=== PATIENT | male | born 1965 | race Caucasian/White ===

== ENCOUNTER 2022-10-22 11:31 | Emergency (ER) | payer OTHER ==
[2022-10-22 11:49] VITALS: BP 178/73; PULSE 72; RESP 18; TEMP 98.1; BMI 37.5
[2022-10-22] MEDS ORDERED: IBUPROFEN 400 MG TABLET (FP) PO ONE ×2 (12:15→12:26)
== END 2022-10-22 12:34 | disposition home or self-care (01) ==
LOC: FER 11:31
DX: S43.422A Sprain of left rotator cuff capsule, initial encounter (principal); X50.0XXA Overexertion from strenuous movement or load, initial encounter
CPT/HCPCS: 73030-TC-LT-FY; 99283-25